=== PATIENT | female | born 1975 | race Asian ===

== ENCOUNTER 2021-01-14 12:20 | Emergency (ER) | payer BC, OTHER ==
[~2021-01-14] VITALS: Ht 162.6 cm; Wt 81.6 kg
[2021-01-14 12:27] VITALS: BP 117/72
[2021-01-14] MEDS ORDERED: FLUORESCEIN SODIUM OPHTH 1 EA STRIP ONE (14:25)
--- NOTE | 2021-01-14 14:44 | NUR ---
Patient discharged to home in stable condition. Written and verbal after care instructions given. Patient verbalizes understanding of instruction.
== END 2021-01-14 14:44 | disposition home or self-care (01) ==
LOC: ER 12:33
DX: S02.2XXA Fracture of nasal bones, initial encounter for closed fracture (principal); S02.31XA Fracture of orbital floor, right side, initial encounter for closed fracture; S02.40CA Maxillary fracture, right side, initial encounter for closed fracture; S00.11XA Contusion of right eyelid and periocular area, initial encounter; W01.0XXA Fall on same level from slipping, tripping and stumbling without subsequent striking against object, initial encounter; Y93.89 Activity, other specified; Y92.89 Other specified places as the place of occurrence of the external cause; Y99.8 Other external cause status
CPT/HCPCS: 70450-TC; 70486-TC